=== PATIENT | female | born 1975 | race Caucasian/White ===

== ENCOUNTER 2021-10-09 09:26 | Emergency (ER) | payer MEDICAID ==
[~2021-10-09] VITALS: Ht 160 cm; Wt 47.0 kg
[~2021-10-09 09:26] MED LIST: CLON0.1T PO; HYDR-4383 PO; METO-539 PO
[2021-10-09 09:39] VITALS: BP 148/100
[2021-10-09] MEDS ORDERED: OXYM-21 BOTHNARES (09:57)
== END 2021-10-09 10:20 | disposition home or self-care (01) ==
LOC: ER 09:27
DX: R09.89 Other specified symptoms and signs involving the circulatory and respiratory systems (principal); R05.9 Cough, unspecified; Z20.822 Contact with and (suspected) exposure to COVID-19; E11.9 Type 2 diabetes mellitus without complications; F17.200 Nicotine dependence, unspecified, uncomplicated; Z56.0 Unemployment, unspecified; Z72.89 Other problems related to lifestyle; Z98.890 Other specified postprocedural states; Z79.899 Other long term (current) drug therapy
CPT/HCPCS: 36415; 99283; U0003; U0005

== ENCOUNTER 2022-06-18 12:56 | Emergency (ER) | payer MEDICAID ==
[~2022-06-18] VITALS: Ht 160 cm; Wt 52.0 kg
[~2022-06-18 12:56] MED LIST changes: +OXYM-21 BOTHNARES
[2022-06-18 13:20] VITALS: BP 131/91
== END 2022-06-18 15:47 | disposition left against medical advice (07) ==
LOC: ER 12:57
DX: M54.9 Dorsalgia, unspecified (principal); Z53.21 Procedure and treatment not carried out due to patient leaving prior to being seen by health care provider